=== PATIENT | female | born 1980 | race Caucasian/White ===

== ENCOUNTER 2022-11-24 10:33 | Outpatient (REF) | payer SELFPAY ==
[2022-11-24 19:12] LABS: HCT 40.8 % (36.0-46.0); HGB 13.3 g/dL (11.2-15.7); MCH 29.6 pg (27.0-33.0); MCHC 32.6 % (32.0-36.0); MCV 91 fL (80-95); MPV 10.5 fL (8.0-11.0); Platelet Count 230 10^3/uL (130-400); RDW 11.9 % (11.7-14.6); RDW-SD 39.7 fL; WBC 6.25 10^3/uL (4.4-10.8)
[2022-11-24 19:37] LABS: ALT 15 U/L (14-59); AST 16 U/L (15-37); Albumin 3.7 g/dL (3.4-5.0); Alkaline Phosphatase 74 U/L (46-116); BUN 14 mg/dL (7-18); Bilirubin, Total 0.5 mg/dL (0.2-1.0); CREATININE 0.8 mg/dL (0.55-1.02); Calcium 9.7 mg/dL (8.5-10.1); Calculated LDL 97 mg/dL (<100); Chloride 105 mmol/L (98-107); Cholesterol 174 mg/dL (<200); Estimated GFR 95.46 (mL/min/1.73m2); Glucose 100 mg/dL (74-106); HDL Cholesterol 64 mg/dL (40-60); Potassium 4.6 mmol/L (3.5-5.1); Sodium 139 mmol/L (136-145); Total Protein 7.2 g/dL (6.4-8.2); Triglyceride 65 mg/dL (<150)
[2022-11-25 09:47] LABS: TSH (W/Ref FT4) 1.27 uIU/mL (0.36-3.74)
== END 2022-11-24 10:34 | disposition home or self-care (01) ==
LOC: NCHCN 10:33
PROVIDERS: Visit Provider Nurse Practitioner Family
DX: E03.9 Hypothyroidism, unspecified (principal); Z13.1 Encounter for screening for diabetes mellitus; Z13.220 Encounter for screening for lipoid disorders; Z86.2 Personal history of diseases of the blood and blood-forming organs and certain disorders involving the immune mechanism
CPT/HCPCS: 80053; 80061; 85027; 84443; 85025